=== PATIENT | male | born 1960 | race Native Hawaiian/Other Pacific Islander ===

== ENCOUNTER 2016-07-14 12:42 | Emergency (ER) | payer SELFPAY ==
[2016-07-14 16:22] LABS: Basophils % (Auto) 0.4 % (0.0-1.8); Eosinophils % (Auto) 2.7 % (0.0-4.3); Hematocrit 55.8 % (35.5-45.6); Hemoglobin 18.5 gm/dl (11.8-15.2); Mean Corpuscular HGB Conc 33 % (32-34); Mean Corpuscular Hemoglobin 31 pg (28-32); Mean Corpuscular Volume 92 fl (84-94); Platelet Count 333 K/mm3 (140-440); Red Blood Count 6.04 M/mm3 (3.65-5.03); Red Cell Distribution Width 12.8 % (13.2-15.2); White Blood Count 15.1 K/mm3 (4.5-11.0)
[2016-07-14 17:20] LABS: Anion Gap 16 mmol/L; BUN/Creatinine Ratio 16.66; Blood Urea Nitrogen 10 mg/dL (9-20); Calcium 9.5 mg/dL (8.4-10.2); Carbon Dioxide 27 mmol/L (22-30); Chloride 92.4 mmol/L (98-107); Glucose 231 mg/dL (75-100); Potassium 3.8 mmol/L (3.6-5.0); Sodium 132 mmol/L (137-145)
[2016-07-14] MEDS ORDERED: PERCOCET 5/325 PO ONE (18:42)
[2016-07-14] MEDS ORDERED: TORADOL IM ONE (18:42)
[2016-07-14] MEDS ORDERED: CATAPRES PO ONE (18:42)
[2016-07-14] MEDS ORDERED: BACTRIM DS PO ONE (18:42)
[2016-07-14] MEDS ORDERED: CLEOCIN IM ONE (18:44)
--- NOTE | 2016-07-14 19:02 | Emergency Department Report ---
ED Extremity Problem HPI - General Chief complaint: Extremity Injury, Lower Stated complaint: LT LEG INJURY Time Seen by Provider: 07/14/16 18:17 Source: patient Mode of arrival: Ambulatory Limitations: No Limitations - History of Present Illness Initial comments: 56-year-old male with a past medical history of insulin-dependent diabetes or hypertension, previous CVA presents to the hospital complaining of left leg pain , redness, swelling 9 days. Patient states a Doberman pinscher ran into his leg causing initial injury. He is gradually developed worsening anterior leg redness, warmth, and swelling. Pain is rated 8/10 in intensity, constant, aching/throbbing, reproducible patient will appear no alleviating factors reported. Patient denies fever or chills but feels dizzy at times. Patient has been noncompliant with his diabetes and blood pressure medication for the last 3-8 days but didn't take his insulin and BP medicine today. He does not monitor his glucose on a regular basis. He recently traveled here from [place] to visit his daughter in [place]. No reports of chest pain or shortness of breath. - Related Data Previous Rx's Medication Instructions Recorded Last Taken Type Ibuprofen [Motrin] 800 mg PO Q8HR PRN #30 tablet 07/14/16 Unknown Rx Sulfamethoxazole/Trimethoprim 1 each PO BID #20 tablet 07/14/16 Unknown Rx [Bactrim DS TAB] traMADol [Ultram 50 MG tab] 50 mg PO Q6HR PRN #20 tablet 07/14/16 Unknown Rx Allergies Allergy/AdvReac Type Severity Reaction Status Date / Time No Known Allergies Allergy Unverified 07/14/16 14:00 ED Review of Systems ROS: Stated complaint: LT LEG INJURY Other details as noted in HPI Comment: All other systems reviewed and negative Other: Constitutional: No fevers chills Eyes: No eye pain visual changes ENT: No ear pain or throat pain Neck: Denies pain Respiratory: Denies cough wheezing shortness of breath Cardiovascular: Denies chest pain, palpitations, syncope GI: Denies abdominal pain, nausea, vomiting, diarrhea : Denies dysuria Musculoskeletal: Denies back pain Skin: As per HPI Neurologic: Denies headache, numbness, weakness Psychiatric: Denies suicidal ideation, hallucinations ED Past Medical Hx - Past Medical History Hx Hypertension: Yes Hx Diabetes: Yes Additional medical history: CVA - Social History Smoking Status: Current Every Day Smoker Substance Use Type: None - Medications Home Medications: Home Medications Medication Instructions Recorded Confirmed Last Taken Type Ibuprofen [Motrin] 800 mg PO Q8HR PRN #30 tablet 07/14/16 Unknown Rx Sulfamethoxazole/Trimethoprim 1 each PO BID #20 tablet 07/14/16 Unknown Rx [Bactrim DS TAB] traMADol [Ultram 50 MG tab] 50 mg PO Q6HR PRN #20 tablet 07/14/16 Unknown Rx ED Physical Exam - General Limitations: No Limitations - Other Other exam information: General: No limitations, patient is alert in no acute distress Head exam: Atraumatic, normocephalic Eyes exam: Normal appearance, pupils equal reactive to light, extraocular movements intact ENT: Moist mucous membrane, normal oropharynx Neck exam: Normal inspection, full range of motion, no meningismus nontender Respiratory exam: Clear to auscultation bilateral, no wheezes, rales, crackles Cardiovascular: Normal rate and rhythm, normal heart sounds Abdomen: Soft, nondistended, and nontender, with normal bowel sounds, no rebound, or guarding Extremity: Full range of motion, bilateral lower extremity edema that appears to be chronic. Patient has left lower leg erythema anteriorly that is tender to palpation, and warm. Back: Normal Inspection, full range of motion, no tenderness Neurologic: Alert, oriented x3, cranial nerves intact, no motor or sensory deficit Psychiatric: normal affect, normal mood Skin: Warm, dry, intact ED Course Vital Signs 07/14/16 07/14/16 07/14/16 14:00 18:39 19:09 Temperature 98.0 F Pulse Rate 103 H 104 H Respiratory 20 18 Rate Blood Pressure 192/114 187/111 Blood Pressure [Right] O2 Sat by Pulse 98 97 Oximetry 07/14/16 07/14/16 20:43 20:58 Temperature Pulse Rate 105 H 98 H Respiratory 18 Rate Blood Pressure Blood Pressure 182/96 [Right] O2 Sat by Pulse 99 Oximetry - Reevaluation(s) Reevaluation #1: 07/14/16 21:15 Patient's recovery glucose was in the 170s prior to patient eating in the ED. Symptoms improving ED treatment. Patient declined Percocet ED Medical Decision Making - Lab Data Result diagrams: 07/14/16 16:05 07/14/16 16:05 Lab Results 07/14/16 07/14/16 Range/Units 16:05 16:05 WBC 15.1 H (4.5-11.0) K/mm3 RBC 6.04 H (3.65-5.03) M/mm3 Hgb 18.5 H (11.8-15.2) gm/dl Hct 55.8 H (35.5-45.6) % MCV 92 (84-94) fl MCH 31 (28-32) pg MCHC 33 (32-34) % RDW 12.8 L (13.2-15.2) % Plt Count 333 (140-440) K/mm3 Lymph % (Auto) 18.5 (13.4-35.0) % Mccormick % (Auto) 11.4 H (0.0-7.3) % Eos % (Auto) 2.7 (0.0-4.3) % Baso % (Auto) 0.4 (0.0-1.8) % Lymph # 2.8 (1.2-5.4) K/mm3 Mccormick # 1.7 H (0.0-0.8) K/mm3 Eos # 0.4 (0.0-0.4) K/mm3 Baso # 0.1 (0.0-0.1) K/mm3 Seg Neutrophils % 67.0 (40.0-70.0) % Seg Neutrophils # 10.1 H (1.8-7.7) K/mm3 Sodium 132 L (137-145) mmol/L Potassium 3.8 (3.6-5.0) mmol/L Chloride 92.4 L (98-107) mmol/L Carbon Dioxide 27 (22-30) mmol/L Anion Gap 16 mmol/L BUN 10 (9-20) mg/dL Creatinine 0.6 L (0.8-1.5) mg/dL Estimated GFR > 60 ml/min BUN/Creatinine Ratio 16.66 % Glucose 231 H (75-100) mg/dL Calcium 9.5 (8.4-10.2) mg/dL - Radiology Data Radiology results: report reviewed (left leg Doppler no DVT) - Medical Decision Making Patient treated in the ED with clonidine 0.1 mg, clindamycin IM, Bactrim by mouth, and Toradol. - Differential Diagnosis erysipelas, cellulitis, lymphangitis, DVT Critical Care Time: No Critical care attestation.: If time is entered above; I have spent that time in minutes in the direct care of this critically ill patient, excluding procedure time. ED Disposition Clinical Impression: Left leg cellulitis, Diabetes, Uncontrolled hypertension Disposition: DISCHARGED TO HOME OR SELFCARE Is pt being admited?: No Does the pt Need Aspirin: No Condition: Stable Instructions: Diabetes Mellitus Type 2 in Adults (ED), Hypertension (ED), Cellulitis (ED) Additional Instructions: Take medication as prescribed. Return if symptoms worsen. Continue to monitor your sugars at home and take your diabetes and blood pressure medication. Prescriptions: Ibuprofen [Motrin] 800 mg PO Q8HR PRN #30 tablet PRN Reason: Pain Sulfamethoxazole/Trimethoprim [Bactrim DS TAB] 1 each PO BID #20 tablet traMADol [Ultram 50 MG tab] 50 mg PO Q6HR PRN #20 tablet PRN Reason: Pain Referrals: PRIMARY CARE, [Primary Care Provider] - 2-3 Days [facility] [Provider Group] - 2-3 Days Time of Disposition: 21:18
[2016-07-14 20:44] VITALS: BP 182/96
--- NOTE | 2016-07-17 07:48 | Vascular Lab Report ---
Left Lower Extremity Venous Duplex Study: Reason for Exam: Pain and swelling of the left lower extremity. Comments on the Right: A limited duplex study was done of the proximal veins of the right lower extremity. All veins visualized are freely compressible without evidence of internal echogenicity. Flow is spontaneous and phasic throughout. No evidence of acute or chronic thrombus is seen in any of the vessels visualized. Comments on the Left: All veins visualized are freely compressible without evidence of internal echogenicity. Flow is spontaneous and phasic throughout. No evidence of acute or chronic thrombus is seen in any of the vessels visualized. Multiple varicosities noted in the left leg. Venous insufficiency workup should be considered. Impression: No evidence of acute or chronic deep venous thrombosis in the left lower extremity. Venous insufficiency workup should be considered.
== END 2016-07-14 21:24 | disposition home or self-care (01) ==
LOC: ED 12:42
DX: L03.116 Cellulitis of left lower limb (principal); I10 Essential (primary) hypertension; E11.9 Type 2 diabetes mellitus without complications; F17.200 Nicotine dependence, unspecified, uncomplicated; Z79.4 Long term (current) use of insulin; Z86.73 Personal history of transient ischemic attack (TIA), and cerebral infarction without residual deficits
CPT/HCPCS: 36415; 80048; 82962; 85025; 93971; 96372; 99283; J1885